=== PATIENT | male | born 1945 | race Caucasian/White ===

== ENCOUNTER 2024-07-18 13:16 | Inpatient (IN) | payer MEDICARE, OTHER ==
[2024-07-18] MEDS ORDERED: Midazolam HCl 2 mg/2 ml Vial ONE (13:24)
[2024-07-18 14:02] LABS: ALT (SGPT) 18 U/L (8-55); AST (SGOT) 24 U/L (5-34); Albumin 4.1 g/dL (3.4-4.8); Alkaline Phosphatase 61 U/L (40-110); Anion Gap 14 mmol/L (10-20); BUN (Urea Nitrogen) 10 mg/dL (8.4-25.7); Bilirubin, Total 1.4 mg/dL (0.2-1.2); Calc. Creatinine Clearance 0 mL/min (70-130); Calcium 9.6 mg/dL (7.8-10.44); Carbon Dioxide 23 mmol/L (23-31); Chloride 100 mmol/L (98-107); Estimated GFR 93; Globulin 2.6 g/dL (2.4-3.5); Glucose 121 mg/dL (83-110); Protein, Total 6.7 g/dL (5.8-8.1); Sodium 133 mmol/L (136-145)
[2024-07-18] MEDS ORDERED: Sodium Chloride 0.9% 250 ML BAG (BAXTER) ONE (14:05)
[2024-07-18] MEDS ORDERED: niCARdipine 25 MG/10 ML SDV ONE (14:05)
[2024-07-18] MEDS ORDERED: Tenecteplase 50 MG ONE (14:05)
[2024-07-18 14:38] LABS: #Basophils 0.07 10x3/uL (0.0-0.2); %Basophils 1.7 % (0.0-1.0); %Eosinophils 0.7 % (0.0-10.0); %Lymphocytes 17.5 % (21.0-51.0); %Monocytes 11.6 % (0.0-10.0); %Neutrophils 68.3 % (42.0-75.0); Hematocrit 37.4 % (42.0-52.0); Hemoglobin 13.2 g/dL (14.0-18.0); Mean Corpuscular HGB CONC 35.3 g/dL (32.0-36.0); Mean Corpuscular Hemoglobin 33.8 pg (27.0-31.0); Mean Corpuscular Volume 95.7 fL (78.0-98.0); Platelet Count 125 10x3/uL (130-400); Red Blood Cell (RBC) Count 3.91 mill/uL (4.70-6.10)
[2024-07-18 14:40] LABS: Burr Cells SLIGHT = 2-5 cells HPF (0-1); Ovalocytes SLIGHT = 2-5 cells HPF (0-1); Platelet Adequacy Comment Platelets Decreased
[2024-07-18 14:47] LABS: Prothrombin Time 13.5 sec (12.0-14.7)
[2024-07-18 14:48] LABS: PTT 27.2 sec (22.9-36.1)
[2024-07-18] MEDS ORDERED: Iopamidol-370 76% 500 ML MDV (1 ML CHARGE) ONE (15:08)
[2024-07-18 15:09] LABS: Acetaminophen Less than 10 mcg/mL (Less than 10); Alcohol Less than 10.0 mg/dL (Less than 10); Salicylate Less than 8.0 mg/dL (Less than 8.0)
[2024-07-18] MEDS ORDERED: Communication Order-Pharmacy FS SCH (15:40)
[2024-07-18] MEDS ORDERED: hydrALAZINE 20 MG/ML VIAL SLOW IVP PRN (15:40)
[2024-07-18] MEDS ORDERED: Acetaminophen 650 MG Suppository PR PRN (15:40)
[2024-07-18] MEDS ORDERED: Electrolyte Replacement Protocol 1 EACH FS SCH (16:00)
[2024-07-18] MEDS ORDERED: Metoclopramide HCl 10 MG (2 mL) VIAL IVP PRN (16:08)
[2024-07-18] MEDS ORDERED: Haloperidol Lactate 5 MG/ML VIAL ONE (16:17)
[2024-07-18] MEDS: niCARdipine 25 MG in Sodium Chloride 0.9% 250 ML 250 ML IVPB PRN (16:32)
[2024-07-18 17:16] LABS: Bacteria/HPF None Seen HPF (None Seen); Bilirubin Negative (Negative); Blood, Urine Negative (Negative); CAUTI Indications for Culture Alt mental st,lethar; Clarity Clear (Clear); Glucose, Urine (Dipstick) Normal (Negative); Ketone, Urine Trace mg/dL (Negative); Leukocyte Negative Leu/uL (Negative); Nitrite Negative (Negative); Protein, Urine (Dipstick) Negative (Neg-Trace); RBC/HPF 0-3 HPF (0-3); Specific Gravity, Urine 1.019 (1.002-1.036); Squamous Epithelial None Seen HPF (0-3); Urine Culture Reflex No No; Urobilinogen Normal mg/dL (Less than 2); WBC/HPF 0-3 HPF (0-3)
[2024-07-18 17:24] LABS: Amphetamine Not Detected (NotDetected); Barbiturates Screen Not Detected (NotDetected); Benzodiazepine Screen Not Detected (NotDetected); Cocaine Metabolite Screen Not Detected (NotDetected); Methadone Not Detected (NotDetected); Methamphetamine Not Detected (NotDetected); Opiate Screen Not Detected (NotDetected); Oxycodone Screen Not Detected (NotDetected); Phencyclidine (PCP) Not Detected (NotDetected); THC/Cannabinoid Screen Not Detected (NotDetected); Tricyclic Screen Not Detected (NotDetected)
[2024-07-18] MEDS ORDERED: LORazepam 2 MG/ML SYR.(CARPUJECT) ONE ×3 (17:42→23:01)
[2024-07-18] MEDS: Lorazepam 2 MG/ML VIAL SLOW IVP PRN (17:46)
[2024-07-18] MEDS: Labetalol HCl 100 MG/20 ML VIAL SLOW IVP PRN (19:49)
[2024-07-18] MEDS ORDERED: Famotidine/PF 20 mg/2ml Vial ONE (21:32)
[2024-07-18] MEDS: Lactated Ringer's 1,000 ML IV SCH (21:32)
[2024-07-18] MEDS: Famotidine/PF 20 mg/2ml Vial SLOW IVP SCH (21:37)
[2024-07-18] MEDS ORDERED: Dexmedetomidine In 0.9 % NaCl 100 ML IVPB SCH (22:45)
[2024-07-18] MEDS ORDERED: Thiamine HCl 200 MG/2 ML VIAL SLOW IVP SCH (22:45)
[2024-07-18] MEDS: Folic Acid 1 MG TAB PO SCH (23:16)
[2024-07-18] MEDS: Multivit, Therapeutic 1 TAB PO SCH (23:17)
[2024-07-19] MEDS: Haloperidol Lactate 5 MG/ML VIAL IM SCH (07:17)
[2024-07-19] MEDS ORDERED: Atropine Sulfate 1 mg/10 ml Syringe IVP PRN (10:14)
[2024-07-19] MEDS: Lorazepam 1 MG TAB PO PRN (10:38)
[2024-07-19] MEDS: Thiamine HCl 200 MG/2 ML VIAL SLOW IVP SCH (10:43)
[2024-07-19] MEDS: FLU (Fluad Triv) TS24-25 (65UP)/MF59C/PF 45 MCG/0.5 ML Syringe IM ONE (11:56)
[2024-07-19] MEDS: hydrALAZINE 20 MG/ML VIAL SLOW IVP PRN (13:16)
[2024-07-19] MEDS: Digoxin 0.5 MG/2 ML AMP SLOW IVP SCH (14:32)
[2024-07-19 16:11] LABS: #Basophils 0.06 10x3/uL (0.0-0.2); %Eosinophils 1.1 % (0.0-10.0); %Lymphocytes 9.3 % (21.0-51.0); %Monocytes 8.6 % (0.0-10.0); %Neutrophils 79.7 % (42.0-75.0); Hematocrit 41.1 % (42.0-52.0); Hemoglobin 14.4 g/dL (14.0-18.0); Mean Corpuscular Hemoglobin 33.4 pg (27.0-31.0); Mean Corpuscular Volume 95.4 fL (78.0-98.0); Mean Platelet Volume 10.3 fL (7.4-10.4); Platelet Count 121 10x3/uL (130-400); Red Blood Cell (RBC) Count 4.31 mill/uL (4.70-6.10)
[2024-07-19 16:22] LABS: Hemoglobin A1c 4.8 % (4.0-6.0)
[2024-07-19 16:32] LABS: Cardiac Risk 1.7 (Less than 4.5)
[2024-07-19 16:34] LABS: ALT (SGPT) 15 U/L (8-55); AST (SGOT) 31 U/L (5-34); Albumin 3.9 g/dL (3.4-4.8); Alkaline Phosphatase 60 U/L (40-110); Anion Gap 14 mmol/L (10-20); BUN (Urea Nitrogen) 5 mg/dL (8.4-25.7); Bilirubin, Total 1.9 mg/dL (0.2-1.2); Calc. Creatinine Clearance 120 mL/min (70-130); Calcium 9.2 mg/dL (7.8-10.44); Carbon Dioxide 23 mmol/L (23-31); Chloride 102 mmol/L (98-107); Estimated GFR 97; Glucose 123 mg/dL (83-110); Magnesium 1.8 mg/dL (1.6-2.6); Phosphorus 2.7 mg/dL (2.3-4.7); Potassium 3.4 mmol/L (3.5-5.1); Protein, Total 6.9 g/dL (5.8-8.1); Sodium 136 mmol/L (136-145)
[2024-07-19] MEDS: Digoxin 0.5 MG/2 ML AMP ONE (17:31)
[2024-07-19] MEDS: Amiodarone 450 MG, Admixture Fee 1 EACH in Dextrose 5% in Water 250 ML IVPB SCH (20:30)
[2024-07-19] MEDS: Amiodarone 150 MG, Admixture Fee 1 EACH in Dextrose 5% in Water 100 ML IVPB SCH (20:31)
[2024-07-19] MEDS: Multivit, Therapeutic 1 TAB PO SCH (20:34)
[2024-07-19] MEDS: Folic Acid 1 MG TAB PO SCH (20:34)
[2024-07-19] MEDS ORDERED: Lorazepam 1 MG TAB PO PRN (22:31)
[2024-07-19] MEDS: Magnesium 2 GM/50 ML(in water) 2 GM in Premix 1 BAG IVPB SCH (23:46)
[2024-07-19] MEDS ORDERED: Potassium Chloride 20 MEQ TAB PO SCH (23:59)
[2024-07-20] MEDS: Potassium Chloride 20 MEQ in Premix 1 BAG IVPB SCH (00:43)
[2024-07-20 06:24] LABS: Anion Gap 14 mmol/L (10-20); BUN (Urea Nitrogen) 6 mg/dL (8.4-25.7); Calc. Creatinine Clearance 129 mL/min (70-130); Carbon Dioxide 22 mmol/L (23-31); Chloride 103 mmol/L (98-107); Estimated GFR 99; Glucose 119 mg/dL (83-110); Potassium 4.4 mmol/L (3.5-5.1); Sodium 135 mmol/L (136-145)
[2024-07-20] MEDS ORDERED: Magnevist 469MG/ML 20 ML VIAL ONE (11:01)
[2024-07-20] MEDS ORDERED: Lorazepam 1 MG TAB PO PRN (22:31)
[2024-07-21 04:34] LABS: Anion Gap 14 mmol/L (10-20); BUN (Urea Nitrogen) 9 mg/dL (8.4-25.7); Calc. Creatinine Clearance 131 mL/min (70-130); Carbon Dioxide 21 mmol/L (23-31); Chloride 104 mmol/L (98-107); Estimated GFR 99; Glucose 107 mg/dL (83-110); Potassium 3.6 mmol/L (3.5-5.1); Sodium 135 mmol/L (136-145)
[2024-07-21 04:35] LABS: #Basophils 0.05 10x3/uL (0.0-0.2); %Eosinophils 1.3 % (0.0-10.0); %Lymphocytes 12.4 % (21.0-51.0); %Monocytes 12.4 % (0.0-10.0); %Neutrophils 72.5 % (42.0-75.0); Hematocrit 38.4 % (42.0-52.0); Hemoglobin 13.3 g/dL (14.0-18.0); Mean Corpuscular HGB CONC 34.6 g/dL (32.0-36.0); Mean Corpuscular Volume 95.3 fL (78.0-98.0); Mean Platelet Volume 11.5 fL (7.4-10.4); Platelet Count 119 10x3/uL (130-400); RBC Distribution Width 13.3 % (11.5-14.5); Red Blood Cell (RBC) Count 4.03 mill/uL (4.70-6.10)
[2024-07-21] MEDS: hydrALAZINE 20 MG/ML VIAL SLOW IVP PRN (11:33)
[2024-07-21] MEDS: Amlodipine 5 MG TAB PO SCH (11:34)
[2024-07-21] MEDS: Labetalol HCl 100 MG/20 ML VIAL SLOW IVP PRN (13:13)
[2024-07-21] MEDS: Potassium Phosphate 15 MMOL in Sodium Chloride 0.9% 100 ML IVPB SCH (15:01)
[2024-07-21] MEDS ORDERED: Thiamine 100 MG TAB PO SCH (21:00)
[2024-07-21] MEDS: NOREPINEPHRINE 8 MG/250 ML-D5W 0 ML ONE (22:10)
[2024-07-22 05:49] LABS: #Basophils 0.05 10x3/uL (0.0-0.2); %Basophils 0.8 % (0.0-1.0); %Eosinophils 2.2 % (0.0-10.0); %Lymphocytes 11.7 % (21.0-51.0); %Monocytes 13.3 % (0.0-10.0); %Neutrophils 71.8 % (42.0-75.0); Hematocrit 40.1 % (42.0-52.0); Hemoglobin 13.9 g/dL (14.0-18.0); Mean Corpuscular HGB CONC 34.7 g/dL (32.0-36.0); Mean Corpuscular Hemoglobin 32.9 pg (27.0-31.0); Mean Corpuscular Volume 94.8 fL (78.0-98.0); Mean Platelet Volume 11.9 fL (7.4-10.4); Platelet Count 126 10x3/uL (130-400); RBC Distribution Width 13.2 % (11.5-14.5); Red Blood Cell (RBC) Count 4.23 mill/uL (4.70-6.10)
[2024-07-22 06:18] LABS: Anion Gap 11 mmol/L (10-20); BUN (Urea Nitrogen) 9 mg/dL (8.4-25.7); Calc. Creatinine Clearance 154 mL/min (70-130); Calcium 9.1 mg/dL (7.8-10.44); Carbon Dioxide 23 mmol/L (23-31); Chloride 105 mmol/L (98-107); Estimated GFR 104; Glucose 98 mg/dL (83-110); Magnesium 1.7 mg/dL (1.6-2.6); Potassium 3.3 mmol/L (3.5-5.1); Sodium 136 mmol/L (136-145)
[2024-07-22] MEDS: Potassium Chloride 20 MEQ TAB PO SCH (09:20)
[2024-07-22] MEDS: Magnesium 2 GM/50 ML(in water) 2 GM in Premix 1 BAG IVPB SCH (09:20)
[2024-07-22] MEDS: Amlodipine 5 MG TAB PO SCH (09:20)
[2024-07-22] MEDS: Lisinopril 5 MG TAB PO SCH (12:46)
[2024-07-22] MEDS ORDERED: Senokot S 8.6-50 MG TAB PO PRN (16:39)
[2024-07-23 05:58] LABS: Anion Gap 12 mmol/L (10-20); BUN (Urea Nitrogen) 12 mg/dL (8.4-25.7); Calc. Creatinine Clearance 124 mL/min (70-130); Calcium 9.4 mg/dL (7.8-10.44); Carbon Dioxide 22 mmol/L (23-31); Chloride 106 mmol/L (98-107); Estimated GFR 96; Glucose 98 mg/dL (83-110); Potassium 3.4 mmol/L (3.5-5.1); Sodium 137 mmol/L (136-145)
[2024-07-23] MEDS ORDERED: Senokot S 8.6-50 MG TAB PO PRN (08:49)
[2024-07-23] MEDS ORDERED: Electrolyte Replacement Protocol FS PRN (09:00)
[2024-07-23] MEDS: Potassium Chloride 20 MEQ TAB PO SCH (10:00)
[2024-07-23] MEDS: Lisinopril 5 MG TAB PO SCH (10:00)
[2024-07-23] MEDS: Lorazepam 0.5 MG TAB PO PRN (21:31)
[2024-07-24 04:24] LABS: Anion Gap 13 mmol/L (10-20); BUN (Urea Nitrogen) 12 mg/dL (8.4-25.7); Calc. Creatinine Clearance 142 mL/min (70-130); Calcium 8.9 mg/dL (7.8-10.44); Carbon Dioxide 22 mmol/L (23-31); Chloride 106 mmol/L (98-107); Estimated GFR 100; Glucose 96 mg/dL (83-110); Potassium 3.3 mmol/L (3.5-5.1); Sodium 138 mmol/L (136-145)
[2024-07-24] MEDS: Potassium Chloride 20 MEQ TAB PO SCH (09:07)
[2024-07-24 17:43] LABS: Magnesium 1.9 mg/dL (1.6-2.6); Potassium 3.6 mmol/L (3.5-5.1)
[2024-07-24] MEDS: Magnesium 2 GM/50 ML(in water) 2 GM in Premix 1 BAG IVPB SCH (21:05)
[2024-07-25 07:45] LABS: Anion Gap 17 mmol/L (10-20); BUN (Urea Nitrogen) 13 mg/dL (8.4-25.7); Calc. Creatinine Clearance 132 mL/min (70-130); Calcium 9.3 mg/dL (7.8-10.44); Carbon Dioxide 20 mmol/L (23-31); Chloride 107 mmol/L (98-107); Estimated GFR 98; Glucose 98 mg/dL (83-110); Potassium 3.5 mmol/L (3.5-5.1); Sodium 140 mmol/L (136-145)
[2024-07-25] MEDS: Potassium Chloride 20 MEQ TAB PO SCH (09:30)
[2024-07-25 12:45] VITALS: BMI 27.2
[2024-07-25] MEDS: Amlodipine 5 MG TAB PO SCH (16:10)
[2024-07-25] MEDS: Lisinopril 5 MG TAB PO SCH (16:10)
[2024-07-25] MEDS: Atorvastatin Calcium 40 MG TAB PO SCH (20:23)
[2024-07-26] MEDS: Amlodipine 10 MG TAB PO SCH (09:40)
[2024-07-26] MEDS: Lisinopril 10 MG TAB PO SCH ×2 (09:40→20:47)
[2024-07-26 10:17] LABS: #Basophils 0.08 10x3/uL (0.0-0.2); %Basophils 1.1 % (0.0-1.0); %Eosinophils 1.3 % (0.0-10.0); %Lymphocytes 9.1 % (21.0-51.0); %Monocytes 12.7 % (0.0-10.0); %Neutrophils 75.4 % (42.0-75.0); Hematocrit 41.7 % (42.0-52.0); Hemoglobin 14.4 g/dL (14.0-18.0); Mean Corpuscular HGB CONC 34.5 g/dL (32.0-36.0); Mean Corpuscular Hemoglobin 33.2 pg (27.0-31.0); Mean Corpuscular Volume 96.1 fL (78.0-98.0); Mean Platelet Volume 10.4 fL (7.4-10.4); Platelet Count 146 10x3/uL (130-400); RBC Distribution Width 12.8 % (11.5-14.5); Red Blood Cell (RBC) Count 4.34 mill/uL (4.70-6.10)
[2024-07-26 10:46] LABS: Anion Gap 12 mmol/L (10-20); BUN (Urea Nitrogen) 16 mg/dL (8.4-25.7); Calc. Creatinine Clearance 145 mL/min (70-130); Carbon Dioxide 23 mmol/L (23-31); Chloride 108 mmol/L (98-107); Estimated GFR 101; Glucose 124 mg/dL (83-110); Potassium 3.3 mmol/L (3.5-5.1); Sodium 140 mmol/L (136-145)
[2024-07-26] MEDS: Potassium Bicarbonate/Cit Ac 20 MEQ TAB PO SCH (14:32)
[2024-07-26] MEDS: Ondansetron ODT 4 MG TAB PO PRN (20:47)
[2024-07-26] MEDS: Lorazepam 2 MG/ML VIAL SLOW IVP SCH (23:58)
[2024-07-27 05:56] VITALS: BMI 26.1
[2024-07-27 13:27] VITALS: BP 136/69; TEMP 97.5
== END 2024-07-27 14:49 | DRG 61 ==
LOC: ERS 13:16 → ERHOLD 15:52 → CCU 07-19 02:10 → 2SE 07-22 18:44
PROVIDERS: ADMIT Family Medicine; ATTEND Family Medicine
PROC: 3E03317 Introduction of Other Thrombolytic into Peripheral Vein, Percutaneous Approach (ICD-10-PCS; principal; 2024-07-18)
PROC: 4A10X4Z Monitoring of Central Nervous Electrical Activity, External Approach (ICD-10-PCS; 2024-07-18)
PROC: 4A10X4Z Monitoring of Central Nervous Electrical Activity, External Approach (ICD-10-PCS; 2024-07-24)
DX: I63.9 Cerebral infarction, unspecified (principal); G93.41 Metabolic encephalopathy; I61.9 Nontraumatic intracerebral hemorrhage, unspecified; D61.818 Other pancytopenia; E87.1 Hypo-osmolality and hyponatremia; G93.40 Encephalopathy, unspecified; I10 Essential (primary) hypertension; I48.91 Unspecified atrial fibrillation; R94.31 Abnormal electrocardiogram [ECG] [EKG]; Z66 Do not resuscitate; D64.9 Anemia, unspecified; R29.715 NIHSS score 15; E87.6 Hypokalemia; E83.42 Hypomagnesemia; R13.10 Dysphagia, unspecified; Z79.899 Other long term (current) drug therapy
CPT/HCPCS: 36415; 36416; 70450; 70496; 70498; 70553; 71045; 76376; 80048; 80053; 80061; 80306; 80307; 82140; 83036; 83735; 84100; 84443; 84484; 85025; 85610; 85730; 93005; 93010; 93306; 94760; 95700; 95705; 95712; 95957; 96372; 96374; 96375; J0282; J0360; J1160; J1630; J2060; J2250; J3101; J3411; J3475; J3480; J3490; J7050; J7070; J7120; Q0162; Q9967

== ENCOUNTER 2024-08-06 08:50 | Outpatient (CLI) | payer MEDICARE, OTHER | END 2024-08-06 08:51 | disposition home or self-care (01) | LOC: CT 08:50 | PROVIDERS: ATTEND Neurological Surgery | DX: I61.9 Nontraumatic intracerebral hemorrhage, unspecified (principal) | CPT/HCPCS: 70450 ==